=== PATIENT | female | born 1995 | race Caucasian/White ===

== ENCOUNTER 2016-09-21 09:12 | Emergency (ER) | payer MEDICAID ==
[~2016-09-21] VITALS: Ht 170.2 cm; Wt 106.1 kg
[~2016-09-21 09:12] MED LIST: DOCU-30 PO; FERR325T20 PO; IBUP-1222 PO; PREN1TAB25 PO; SERT50TA PO
[2016-09-21 09:14] VITALS: BP 122/79
[2016-09-21] MEDS ORDERED: ONDANSETRON ODT 4 MG ONE (09:36)
[2016-09-21] MEDS ORDERED: KETOROLAC 30 MG/1 ML ONE (09:36)
[2016-09-21] MEDS ORDERED: KETOROLAC 30 MG/1 ML IM ONE (10:00)
[2016-09-21] MEDS ORDERED: ONDANSETRON ODT 4 MG PO ONE (10:00)
[2016-09-21 10:11] LABS: HEMATOCRIT 37.1 % (34.6-47.8); HEMOGLOBIN 12.6 g/dL (11.7-16.4); WHITE BLOOD COUNT 10.8 x10^3/uL (3.4-10)
[2016-09-21 10:23] LABS: BLOOD UREA NITROGEN 9 mg/dL (7-18)
== END 2016-09-21 11:04 | disposition home or self-care (01) ==
LOC: ED 10:58
DX: N94.4 Primary dysmenorrhea (principal)
CPT/HCPCS: 36415; 80048; 82040; 84703; 85025; 96372; 99284; J1885; Q0162